=== PATIENT | female | born 2000 | race Hispanic/Latino ===

== ENCOUNTER 2024-10-13 13:26 | Emergency (ER) | payer SELFPAY ==
[~2024-10-13] VITALS: Ht 165.1 cm; Wt 78.0 kg
--- NOTE | 2024-10-13 13:37 | ERN ---
ED Note History of Present Illness Stated Complaint: FALL Chief Complaint: Mechanical Fall Time Seen by MD: 13:28 Dictation: PATIENT IS A 24-YEAR-OLD FEMALE HERE WITH COMPLAINTS OF BILATERAL KNEE PAIN AND RIGHT FOOT PAIN AFTER SLIPPING DOWN THE LAST TWO STEPS COMING DOWN A LADDER. SHE STATES SHE LOST HER FOOTING AND LANDED ON HER BILATERAL KNEES AND HER RIGHT FOOT. SHE IS FULLY AMBULATORY TO THE TRIAGE ROOM. ABRASIONS NOTED TO BILATERAL KNEES. NO HIP PAIN NO NECK PAIN NO HEAD INJURY. NO TRAUMA ALERT CRITERIA. Allergies: Coded Allergies: No Known Allergies (Unverified Allergy, Unknown, 10/13/24) Past Medical History Past Medical History: No Pertinent History Surgical History: None History: Not Applicable RN Note Reviewed/Agreed w/PFSH: Yes Review of System Dictation CONSTITUTIONAL: NEGATIVE EXCEPT FOR HPI HEAD/FACE: NEGATIVE EXCEPT FOR HPI EENT: NEGATIVE EXCEPT FOR HPI RESPIRATORY: NEGATIVE EXCEPT FOR HPI GASTROINTESTINAL/ABDOMINAL: NEGATIVE EXCEPT FOR HPI GENITOURINARY: NEGATIVE EXCEPT FOR HPI MUSCULOSKELETAL: NEGATIVE EXCEPT FOR HPI BILATERAL KNEE/RIGHT FOOT PAIN INTEGUMENTARY: NEGATIVE EXCEPT FOR HPI NEUROLOGICAL/PSYCH: NEGATIVE EXCEPT FOR HPI HEMATOLOGIC/LYMPHATIC: NEGATIVE EXCEPT FOR HPI ALL SYSTEMS NEGATIVE, EXCEPT NOTED ABOVE. 13 POINT REVIEW OF SYSTEMS ASSESSED AND ALL NEGATIVE EXCEPT FOR ABOVE. Initial Vital Sign VS Vital Signs Date Time Temp Pulse Resp B/P (MAP) Pulse Ox O2 Delivery O2 Flow Rate FiO2 10/13/24 13:30 99.1 79 14 175/100 100 Room Air 0 Physical Exam Dictation VITAL SIGNS REVIEWED GENERAL APPEARANCE: ALERT, ORIENTED X 3, MILD ACUTE DISTRESS, WELL DEVELOPED, NOURISHED. HEAD AND FACE: NON-TRAUMATIC. EYES: PERRL, PINK CONJUNCTIVAS, EYELID NO TRAUMA, ANTERIOR CHAMBER WITH ARCUS SENILIS. EARS: PINNAS INTACT AND NO SIGNS OF TRAUMA OR ERYTHEMA EAR CANALS CLEAR AND NO DISCHARGE TM NO ERYTHEMA NOSE: NO DISCHARGE, NO BLEEDING. OROPHARYNX: MOUTH NORMAL, TONGUE PINK, PHARYNX CLEAR,NO ERYTHEMA, TONSILS NO EXUDATES, NO ABSCESSES NOTED, MUCOUS MEMBRANE MOIST NECK: SUPPLE, NON-TENDER, NO THYROMEGALY, NO MASSES, NO JVD, NO BRUITS BREAST:DEFERRED CHEST:NO TENDERNESS, NO CREPITUS, NO PARADOXICAL MOVEMENT, NO RETRACTIONS LUNGS:CLEAR, WELL-VENTILATED, SYMMETRIC, NO RALES, NO WHEEZING, NO RHONCHI, NO STRIDOR, GOOD BREATH SOUNDS BILATERALLY HEART: REGULAR RATE, REGULAR RHYTHM, NO MURMUR, NO GALLOPS VASCULAR: NO PERIPHERAL EDEMA, ABDOMEN: SOFT, POSITIVE BOWEL SOUNDS, NONDISTENDED, NO GUARDING, NONTENDER, NO REBOUND, NO MASSES NO HEPATOMEGALY, NO SPLENOMEGALY, NO WELLS'S SIGN, NO HERNIAS. RECTAL: DEFERRED GENITAL: DEFERRED NEUROLOGICAL: NORMAL SPEECH, MOTOR FUNCTION INTACT, SENSORY FUNCTION INTACT MUSCULOSKELETAL: NECK NONTENDER, BILATERAL KNEE ABRASIONS WITH TENDERNESS. EXTREMITIES: RIGHT DORSAL FOOT TENDERNESS SKIN INTACT, FULL RANGE OF MOTION SKIN: COLOR PINK, DRY, NO TURGOR, NO RASH, NO LACERATIONS, NO ABRASIONS, NO CONTUSIONS. LYMPHATIC: DEFERRED Results (Laboratory/Radiology) Laboratory/Radiology 1410/BILATERAL KNEE X-RAYS/LEFT FOOT X-RAY NEGATIVE Labs Reviewed?: Yes ED Course ED Course Orders Procedure Category Date Status Time Knee 3vws Lt RAD 10/13/24 Taken 13:33 Knee 3vws Rt RAD 10/13/24 Taken 13:33 Foot Comp 3+Vws Rt RAD 10/13/24 Taken 13:33 Apply Ice Pack To: CPOE 10/13/24 Transmitted (Er) 13:33 Acetaminophen 500mg PHA 10/13/24 Complete Tab (Tylenol 500mg T 14:00 Current Medications Medications (Trade) Dose Ordered Sig/Pito Route PRN Reason Start Time Stop Time Status Last Admin Dose Admin Acetaminophen (TYLenol 500MG TAB) 1,000 mg ONCE ONCE PO 10/13/24 14:00 10/13/24 14:01 DC 10/13/24 14:09 Vital Signs Date Time Temp Pulse Resp B/P (MAP) Pulse Ox O2 Delivery O2 Flow Rate FiO2 10/13/24 13:30 99.1 79 14 175/100 100 Room Air 0 1410/PATIENT DISCHARGED HOME WITH BILATERAL KNEE CONTUSIONS AND LEFT FOOT CONTUSION STATUS POST FALL FROM LADDER. DISCHARGED HOME WITH IBUPROFEN GIVEN RICE INSTRUCTIONS AND TOLD SEE HER PRIMARY CARE DOCTOR, ACTIVITY TOLERATED Medical Decision Making MDM MEDICAL DISCHARGE MAKING BASED ON X-RAYS OF BILATERAL KNEES, RIGHT FOOT ALL X-RAYS NEGATIVE PATIENT DISCHARGED HOME WITH DIAGNOSIS OF BILATERAL KNEE CONTUSION, RIGHT FOOT CONTUSION GIVEN IBUPROFEN AND ACTIVITY INSTRUCTIONS. ALSO INFORMATION ON RICE DX & DISP Disposition: Discharge Departure Impression: Primary Impression: Contusion of knee, left Additional Impressions: Contusion of knee, right, Contusion of right foot, initial encounter, Fall from ladder, Abrasion, multiple sites Condition: Stable Scripts Ibuprofen (Ibuprofen 800 mg Tab) 800 Mg Tab 800 MG PO Q8H PRN for fever or pain, #30 TAB 0 Refills TAKE WITH FOOD Prov: ELIZABETH LOPES NP 10/13/24 Additional Instructions: FOLLOW-UP WITH PRIMARY CARE PROVIDER IN 1 TO 2 DAYS. TAKE MEDICATIONS DIRECTED HERE IN THE EMERGENCY ROOM. OKAY TO CONTINUE HOME MEDICATIONS UNLESS OTHERWISE DISCUSSED DURING YOUR VISIT IN THE EMERGENCY ROOM TODAY. RETURN TO YOUR NEAREST EMERGENCY ROOM IF SYMPTOMS WORSEN OR IF THERE IS NO IMPROVEMENT. CALL 911 IF YOU NEED IMMEDIATE ASSISTANCE. TAKE TYLENOL OR MOTRIN [id number] NEEDED AND IF NO CONTRAINDICATIONS ARE PRESENT. INCREASE ORAL HYDRATION. A WOUND CULTURE OR URINE CULTURE WAS ORDERED HERE IN THE EMERGENCY ROOM DEPARTMENT PLEASE FOLLOW-UP WITH PRIMARY CARE PROVIDER AND ADVISE THEM TO GET REPEAT PORTS FROM OUR FACILITY. IF YOU HAD ANY MAEVE WRAP/SPLINTS THAT WERE APPLIED HERE, PLEASE DO NOT REMOVE THEM UNTIL YOU SEE YOUR PRIMARY CARE OR SPECIALTY. COOL COMPRESSES TO PAIN THREE TO 4 TIMES A DAY. APPLY TRIPLE ANTIBIOTIC OINTMENT/[id number] 3 TIMES A DAY FOR FIVE DAYS TO ABRASIONS ON KNEES. ACTIVITY TOLERATED AND SEE YOUR PRIMARY CARE DOCTOR FOR FOLLOW UP. Time of Disposition: 14:13 I have reviewed the case, and I agree with, Diagnosis and Plan ELIZABETH LOPES NP October 13, 2024 13:37
[2024-10-13] MEDS: acetaMINOPHEN 500 MG TABLET PO ONE (14:09)
[2024-10-13] MEDS ORDERED: IBUP-2077 PO (14:14)
[2024-10-13 14:22] VITALS: BP 160/89; PULSE 76; RESP 14; TEMP 98.9; O2SAT 100
--- NOTE | 2024-10-13 14:33 | HMCIMG ---
Exam Type: KNEE 3VWS LT Clinical Information: ANTERIOR KNEE PAIN WITH A ABRASION STATUS POST FALL Comparison: None Findings: The bone examination is unremarkable except for a small osteochondroma arising from the proximal aspect of the medial fibula.. No fractures or dislocations are seen. No radiopaque foreign bodies are noted. Soft tissues are preserved. IMPRESSION: No acute pathology.
--- NOTE | 2024-10-13 14:41 | HMCIMG ---
Exam Type: FOOT COMP 3+VWS RT Clinical Information: RIGHT DORSAL FOOT TENDERNESS PAIN STATUS POST SLIP FALL FLAT Comparison: None Findings: The bone examination is unremarkable. No fractures or dislocations are seen. No radiopaque foreign bodies are noted. Soft tissues are preserved. IMPRESSION: Normal examination.
--- NOTE | 2024-10-13 14:44 | HMCIMG ---
Exam Type: KNEE 3VWS RT Clinical Information: ANTERIOR KNEE PAIN WITH A ABRASION STATUS POST FALL Comparison: None Findings: The bone examination is unremarkable. No fractures or dislocations are seen. No radiopaque foreign bodies are noted. Soft tissues are preserved. IMPRESSION: Normal examination.
== END 2024-10-13 14:33 | disposition home or self-care (01) ==
LOC: EDH 13:26
DX: S80.02XA Contusion of left knee, initial encounter (principal); S80.01XA Contusion of right knee, initial encounter; S90.31XA Contusion of right foot, initial encounter; S80.211A Abrasion, right knee, initial encounter; W11.XXXA Fall on and from ladder, initial encounter; Y93.89 Activity, other specified; Y92.89 Other specified places as the place of occurrence of the external cause; Y99.8 Other external cause status
CPT/HCPCS: 73562; 73630; 99284

== ENCOUNTER 2025-03-21 08:47 | Emergency (ER) | payer SELFPAY ==
[~2025-03-21] VITALS: Ht 165.1 cm; Wt 79.5 kg
[~2025-03-21 08:47] MED LIST: IBUP-2077 PO
--- NOTE | 2025-03-21 09:51 | ERN ---
General Chief Complaint: Tooth Ache/Pain Stated Complaint: TOOTH ACHE Time Seen by MD: 09:08 Source: patient History of Present Illness Initial Comments Patient is a 24-year-old female coming in to be evaluated for left upper molar pain. Per patient she has been seen by a dentist in his currently on antibiotics. States that her pain is still present. Allergies: Coded Allergies: No Known Allergies (Unverified Allergy, Unknown, 10/13/24) Home Meds Active Scripts Ibuprofen (Ibuprofen 800 mg Tab) 800 Mg Tab, 800 MG PO Q8H PRN for fever or pain, #30 TAB 0 Refills TAKE WITH FOOD Prov:ELIZABETH LOPES PREFORMING MACHINE OPERATOR 10/13/24 Past Medical History Past Medical History: Hypertension Past Surgical History: None Female( History) History: Not Applicable LMP: Mar 07, 2025 : 2 Para: 2 Aborts: 0 ROS Dictation CONSTITUTIONAL: No chills, no fever, no weakness, no diaphoresis, no malaise. HEAD/FACE: No signs of trauma. EENT: No eye pain, no blurred vision, no tearing, no double vision, no ear pain, no ear discharge, no nose pain, no nasal congestion, no throat pain, no throat swelling, no mouth pain. RESPIRATORY: No cough, no orthopnea, no SOB, no stridor, no wheezing. CARDIOVASCULAR: No chest pain, no edema, no palpitations, no syncope. GASTROINTESTINAL/ABDOMINAL: No abdominal pain, no constipation, no diarrhea, no nausea, no vomiting. GENITOURINARY: No abnormal discharge, no dysuria, no frequent urination, no hematuria. No complaints of pain in the genitals. MUSCULOSKELETAL: No back pain, no gout, no joint pain, no joint swelling, no muscle pain, no muscle stiffness, no neck pain. INTEGUMENTARY: No change in color, no change in hair/nails, no dryness, no lesion, no lumps, no rash. NEUROLOGICAL/PSYCH: No anxiety, not depressed, no emotional problem, no headache, no numbness, no pre-existing deficit, no history of seizures, no tremors, no weakness. HEMATOLOGIC/LYMPHATIC: Not anemic, no history of blood clots, no apparent bleeding, no bruising, glands not swollen. All Systems Negative, Except as Noted. Physical Exam Physical Exam Dictation VITAL SIGNS: Reviewed. GENERAL APPEARANCE: Alert, oriented x3, no acute distress, obese. HEAD AND FACE: Non-traumatic. EYES: PERRL, pink conjunctivas, eyelid no trauma, anterior chamber clear. EARS: Pinnas intact and no signs of trauma or erythema. Ear canals clear and no discharge. TMs no erythema. NOSE: No discharge, no bleeding. OROPHARYNX: Mouth normal, teeth no caries, tongue pink. Pharynx clear, no erythema. Tooth 13. Inflamed partial fracture NECK: Supple, non-tender, no thyromegaly, no masses, no JVD, no bruits. BREAST: Deferred. CHEST: No tenderness, no crepitus, no paradoxical movement, no retractions. LUNGS: Clear, well-ventilated, symmetric, no rales, no wheezing, no rhonchi, no stridor, good breath sounds bilaterally. HEART: Regular rate, regular rhythm, no murmur, no gallops. VASCULAR: No peripheral edema. ABDOMEN: Soft, positive bowel sounds, nondistended, no guarding, nontender, no rebound, no masses no hepatomegaly, no splenomegaly, no Dean's sign, no hernias. RECTAL: Deferred. GENITAL: Deferred. NEUROLOGICAL: Normal speech, gross motor function intact, gross sensory function intact. MUSCULOSKELETAL: Neck nontender, full range of motion, back nontender, full range of motion. EXTREMITIES: Nontender, full range of motion. SKIN: Color pink, dry, no turgor, no rash, no lacerations, no abrasions, no contusions. LYMPHATICS: Deferred. Results Laboratory and Microbiology Labs Reviewed?: Yes MDM MDM: Differential diagnosis: Periodontal disease, fractured molar, Rationale: Tests considered and ordered secondary to shared decision making include: Previous outside records reviewed: Old ER visits. Risk of complication and/or morbidity or mortality of patient management: None Medications-Per medication reconciliation Need for hospitalization: Patient does not meet criteria for hospitalization. Need for emergency major/minor surgery: No Patient is a 24-year-old female coming in complaining of left upper molar pain. Tooth 13. Was evaluated and presents with a fracture but no erythema around the gum line. Patient is currently taking antibiotics medication for pain relief was provided. Patient will be discharged in stable condition with a diagnosis of fractured molar. ED Course Orders Procedure Category Date Status Time ,Urine Test LAB 03/21/25 Verified 09:46 Ketorolac PHA 03/21/25 Verified Tromethamine 30mg/Ml 10:00 Lidocaine Hcl 2% PHA 03/21/25 Verified Viscous (Lidocaine Hcl 10:00 Vital Signs Date Time Temp Pulse Resp B/P (MAP) Pulse Ox O2 Delivery O2 Flow Rate FiO2 03/21/25 08:51 98.6 66 18 147/104 98 Room Air 0 DX & DISP Disposition: Discharge Departure Impression: Primary Impression: Fracture, tooth Additional Impression: Dental cavities Condition: Stable Additional Instructions: FOLLOW-UP WITH PRIMARY CARE PROVIDER IN 1 TO 2 DAYS. TAKE MEDICATIONS DIRECTED HERE IN THE EMERGENCY ROOM. OKAY TO CONTINUE HOME MEDICATIONS UNLESS OTHERWISE DISCUSSED DURING YOUR VISIT IN THE EMERGENCY ROOM TODAY. RETURN TO YOUR NEAREST EMERGENCY ROOM IF SYMPTOMS WORSEN OR IF THERE IS NO IMPROVEMENT. CALL 911 IF YOU NEED IMMEDIATE ASSISTANCE. TAKE TYLENOL [id number] NEEDED AND IF NO CONTRAINDICATIONS ARE PRESENT. INCREASE ORAL HYDRATION. A WOUND CULTURE OR URINE CULTURE WAS ORDERED HERE IN THE EMERGENCY ROOM DEPARTMENT PLEASE FOLLOW-UP WITH PRIMARY CARE PROVIDER AND ADVISE THEM TO GET REPORTS FROM OUR FACILITY. IF YOU HAD ANY MAEVE WRAP/SPLINTS THAT WERE APPLIED HERE, PLEASE DO NOT REMOVE THEM UNTIL YOU SEE YOUR PRIMARY CARE OR SPECIALTY. Referrals: Referrals: SELF,REFERRAL (PCP) DIAZ LUND MD Time of Disposition: 09:50 DEBBIE SANTAMARIA MD Mar 21, 2025 09:51
[2025-03-21] MEDS: LIDOCAINE HCL 2% VISCOUS 15 ML UDCUP PO ONE (10:07)
[2025-03-21 10:23] VITALS: BP 138/84; PULSE 84; RESP 18; TEMP 97.4; O2SAT 97
== END 2025-03-21 10:21 | disposition home or self-care (01) ==
LOC: EDH 08:47
DX: S02.5XXA Fracture of tooth (traumatic), initial encounter for closed fracture (principal); K02.9 Dental caries, unspecified; I10 Essential (primary) hypertension; Z79.899 Other long term (current) drug therapy; X58.XXXA Exposure to other specified factors, initial encounter; Y93.89 Activity, other specified; Y92.89 Other specified places as the place of occurrence of the external cause; Y99.8 Other external cause status
CPT/HCPCS: 99283; 81025; 96372; J1885

== ENCOUNTER 2025-04-07 16:18 | Emergency (ER) | payer SELFPAY ==
[~2025-04-07] VITALS: Ht 162.6 cm; Wt 78.0 kg
[2025-04-07 16:20] VITALS: TEMP 98.3
--- NOTE | 2025-04-07 16:46 | NUR ---
PT JUST PLACED IN HALLWAY B1
--- NOTE | 2025-04-07 16:54 | ERN ---
General Chief Complaint: Tooth Ache/Pain Stated Complaint: TOOTHACHE, LT FACIAL SWELLING Time Seen by MD: 16:21 Source: patient History of Present Illness Initial Comments IN HIS IS A 24-YEAR-OLD FEMALE COMING IN COMPLAINING OF LEFT FACIAL DISCOMFORT I N HIS SWELLING. PER PATIENT SHE HAS BEEN HAVING ISSUES WITH THE LEFT UPPER MOLAR WHICH HAS BEEN SEEN BY HIS PCP/DENTIST BUT DUE TO THE INFECTION HAS NOT BEEN ABLE TO BE EXTRACTED. PATIENT HAS BEEN DEALING WITH THIS FOR TWO WEEKS AND STATES SHE HAS A FLARE-UPS WHICH IMPROVED AND THIS NEW FLARE-UP STARTED TWO DAYS AGO. Allergies: Coded Allergies: No Known Allergies (Unverified Allergy, Unknown, 10/13/24) Home Meds Active Scripts Ibuprofen (Ibuprofen 800 mg Tab) 800 Mg Tab, 800 MG PO Q8H PRN for fever or pain, #30 TAB 0 Refills TAKE WITH FOOD Prov:ELIZABETH LOPES Ghada MUHAMMAD 10/13/24 Past Medical History Past Medical History: Hypertension Past Surgical History: None Female( History) History: Not Applicable LMP: Mar 31, 2025 : 2 Para: 2 Aborts: 0 ROS Dictation CONSTITUTIONAL: NO CHILLS, NO FEVER, NO WEAKNESS, NO DIAPHORESIS, NO MALAISE. HEAD/FACE: NO SIGNS OF TRAUMA. EENT: NO EYE PAIN, NO BLURRED VISION, NO TEARING, NO DOUBLE VISION, NO EAR PAIN, NO EAR DISCHARGE, NO NOSE PAIN, NO NASAL CONGESTION, NO THROAT PAIN, NO THROAT SWELLING, NO MOUTH PAIN. RESPIRATORY: NO COUGH, NO ORTHOPNEA, NO SOB, NO STRIDOR, NO WHEEZING. CARDIOVASCULAR: NO CHEST PAIN, NO EDEMA, NO PALPITATIONS, NO SYNCOPE. GASTROINTESTINAL/ABDOMINAL: NO ABDOMINAL PAIN, NO CONSTIPATION, NO DIARRHEA, NO NAUSEA, NO VOMITING. GENITOURINARY: NO ABNORMAL DISCHARGE, NO DYSURIA, NO FREQUENT URINATION, NO HE MATURIA. NO COMPLAINTS OF PAIN IN THE GENITALS. MUSCULOSKELETAL: NO BACK PAIN, NO GOUT, NO JOINT PAIN, NO JOINT SWELLING, NO M USCLE PAIN, NO MUSCLE STIFFNESS, NO NECK PAIN. INTEGUMENTARY: NO CHANGE IN COLOR, NO CHANGE IN HAIR/NAILS, NO DRYNESS, NO LESI ON, NO LUMPS, NO RASH. NEUROLOGICAL/PSYCH: NO ANXIETY, NOT DEPRESSED, NO EMOTIONAL PROBLEM, NO HEADACHE, NO NUMBNESS, NO PRE-EXISTING DEFICIT, NO HISTORY OF SEIZURES, NO TREMORS, NO WEAKNESS. HEMATOLOGIC/LYMPHATIC: NOT ANEMIC, NO HISTORY OF BLOOD CLOTS, NO APPARENT BLEEDING, NO BRUISING, GLANDS NOT SWOLLEN. ALL SYSTEMS NEGATIVE, EXCEPT NOTED. Physical Exam Physical Exam Dictation VITAL SIGNS: REVIEWED. GENERAL APPEARANCE: ALERT, ORIENTED X3, NO ACUTE DISTRESS, OBESE. HEAD AND FACE: NON-TRAUMATIC. EYES: PERRL, PINK CONJUNCTIVAS, EYELID NO TRAUMA, ANTERIOR CHAMBER CLEAR. EARS: PINNAS INTACT AND NO SIGNS OF TRAUMA OR ERYTHEMA. EAR CANALS CLEAR AND NO DISCHARGE. TMS NO ERYTHEMA. NOSE: NO DISCHARGE, NO BLEEDING. OROPHARYNX: MOUTH NORMAL, TEETH #28 SWELLING/ERYTHEMA, TONGUE PINK. PHARYNX CLEAR, NO ERYTHEMA. TONSILS NO EXUDATES, NO ABSCESSES NOTED. MUCOUS MEMBRANE MOIST. NECK: SUPPLE, NON-TENDER, NO THYROMEGALY, NO MASSES, NO JVD, NO BRUITS. BREAST: DEFERRED. CHEST: NO TENDERNESS, NO CREPITUS, NO PARADOXICAL MOVEMENT, NO RETRACTIONS. LUNGS: CLEAR, WELL-VENTILATED, SYMMETRIC, NO RALES, NO WHEEZING, NO RHONCHI, NO STRIDOR, GOOD BREATH SOUNDS BILATERALLY. HEART: REGULAR RATE, REGULAR RHYTHM, NO MURMUR, NO GALLOPS. VASCULAR: NO PERIPHERAL EDEMA. ABDOMEN: SOFT, POSITIVE BOWEL SOUNDS, NONDISTENDED, NO GUARDING, NONTENDER, NO REBOUND, NO MASSES NO HEPATOMEGALY, NO SPLENOMEGALY, NO WELLS'S SIGN, NO HERNIAS. RECTAL: DEFERRED. GENITAL: DEFERRED. NEUROLOGICAL: NORMAL SPEECH, GROSS MOTOR FUNCTION INTACT, GROSS SENSORY FUNCTION INTACT. MUSCULOSKELETAL: NECK NONTENDER, FULL RANGE OF MOTION, BACK NONTENDER, FULL RANGE OF MOTION. EXTREMITIES: NONTENDER, FULL RANGE OF MOTION. SKIN: COLOR PINK, DRY, NO TURGOR, NO RASH, NO LACERATIONS, NO ABRASIONS, NO CONTUSIONS. LYMPHATICS: DEFERRED. Results Laboratory and Microbiology Lab and Micro Result Laboratory Tests Test 04/07/25 17:02 White Blood Count 12.4 K/uL (4.8-10.8) H Red Blood Count 5.09 MIL/uL (4.00-5.50) Hemoglobin 14.7 g/dL (12.0-16.0) Hematocrit 43.9 % (36-48) Mean Corpuscular Volume 86.2 fL (79-99) Mean Corpuscular Hemoglobin 28.9 pg (27.0-33.0) Mean Corpuscular Hemoglobin Concent 33.5 g/dL (32.0-36.0) Red Cell Distribution Width 12.3 % (11.0-15.5) Platelet Count 291 K/uL (130-400) Mean Platelet Volume 10.0 fL (7.5-10.5) Immature Granulocyte % (Auto) 0.2 % (0-1) Neutrophils (%) (Auto) 65.8 % (40.0-77.0) Lymphocytes (%) (Auto) 27.7 % (21.0-51.0) Monocytes (%) (Auto) 3.7 % (3.0-13.0) Eosinophils (%) (Auto) 2.3 % (0.0-8.0) Basophils (%) (Auto) 0.3 % (0.0-5.0) Neutrophils # (Auto) 8.2 K/uL (1.8-7.7) H Lymphocytes # (Auto) 3.4 K/uL (1.0-4.8) Monocytes # (Auto) 0.5 K/uL (0.1-1.0) Eosinophils # (Auto) 0.28 K/uL (0.00-0.70) Basophils # (Auto) 0.04 K/uL (0.00-0.20) Absolute Immature Granulocyte (auto 0.03 K/uL (0-1) Nucleated Red Blood Cells 0.0 % (0.0-0.19) Sodium Level 139 mmol/L (136-145) Potassium Level 3.6 mmol/L (3.5-5.1) Chloride Level 104 mmol/L (101-111) Carbon Dioxide Level 26 mmol/L (21-32) Blood Urea Nitrogen 12 mg/dL (7-18) Creatinine 0.6 mg/dL (0.5-1.0) Glomerular Filtration Rate Calc 127 mL/min (>90) Random Glucose 89 mg/dL (70-105) Total Calcium 8.7 mg/dL (8.5-10.1) Serum Test, Qualitative NEGATIVE (NEGATIVE) Labs Reviewed?: Yes MDM MDM: DIFFERENTIAL DIAGNOSIS: PERIODONTAL DISEASE, CELLULITIS, RATIONALE: TESTS CONSIDERED AND ORDERED SECONDARY TO SHARED DECISION MAKING INCLUDE: PREVIOUS OUTSIDE RECORDS REVIEWED: OLD ER VISITS. RISK OF COMPLICATION AND/OR MORBIDITY OR MORTALITY OF PATIENT MANAGEMENT: NONE MEDICATIONS-PER MEDICATION RECONCILIATION NEED FOR HOSPITALIZATION: PATIENT DOES NOT MEET CRITERIA FOR HOSPITALIZATION. NEED FOR EMERGENCY MAJOR/MINOR SURGERY: NO PATIENT IS A 24-YEAR-OLD FEMALE COMING IN COMPLAINING OF LEFT FACIAL SWELLING. PATIENT STATES THAT SHE HAS BEEN COURSING THROUGH THIS INFLAMMATION AND THE INFLAMMATION SUBSIDING FOR ABOUT TWO WEEKS. PATIENT WAS SEEN BY HER DENTIST AND WAS TOLD TO COME HERE FOR ANTIBIOTICS. SHE RECEIVED SOME ANTIBIOTICS AND STEROIDS PATIENT WILL BE DISCHARGED IN STABLE CONDITION ORAL AIRWAY COMPROMISE. IT DID ADVISED HER TO CONTINUE FOLLOW UP WITH THE PCP/DENTIST IN 1-2 DAYS. ED Course Orders Procedure Category Date Status Time Cbc With Differential LAB 04/07/25 Complete 16:47 Basic Metabolic Panel LAB 04/07/25 Complete 16:47 Testing, LAB 04/07/25 Complete Serum Hcg 16:47 Clindamycin Ivpb PHA 04/07/25 In Process 300mg/50ml (Cleocin 17:00 Methylprednisolone PHA 04/07/25 Complete Succ 125mg (Solu-Medr 18:00 Current Medications Medications (Trade) Dose Ordered Sig/Piot Route PRN Reason Start Time Stop Time Status Last Admin Dose Admin Clindamycin HCl/ Dextrose 50 ml @ 100 mls/hr Q8H IV 04/07/25 17:00 04/17/25 16:59 04/07/25 17:06 Methylprednisolone Sodium Succinate (Solu-medROL 125MG) 125 mg ONCE ONCE IVP 04/07/25 18:00 04/07/25 18:01 DC 04/07/25 18:00 Vital Signs Date Time Temp Pulse Resp B/P (MAP) Pulse Ox O2 Delivery O2 Flow Rate FiO2 04/07/25 16:20 98.2 83 16 145/96 99 Room Air 0 DX & DISP Disposition: Discharge Departure Impression: Primary Impression: Periodontal disease Additional Impression: Dental cavities Condition: Stable Scripts Clindamycin HCl (Clindamycin HCl) 300 Mg Capsule 1 CAP PO TID for 10 Days, #30 CAP 0 Refills Prov: DEBBIE SANTAMARIA MD 04/07/25 Additional Instructions: FOLLOW-UP WITH PRIMARY CARE PROVIDER IN 1 TO 2 DAYS. TAKE MEDICATIONS DIRECTED HERE IN THE EMERGENCY ROOM. OKAY TO CONTINUE HOME MEDICATIONS UNLESS OTHERWISE DISCUSSED DURING YOUR VISIT IN THE EMERGENCY ROOM TODAY. RETURN TO YOUR NEAREST EMERGENCY ROOM IF SYMPTOMS WORSEN OR IF THERE IS NO IMPROVEMENT. CALL 911 IF YOU NEED IMMEDIATE ASSISTANCE. TAKE TYLENOL [id number] NEEDED AND IF NO CONTRAINDICATIONS ARE PRESENT. INCREASE ORAL HYDRATION. A WOUND CULTURE OR URINE CULTURE WAS ORDERED HERE IN THE EMERGENCY ROOM DEPARTMENT PLEASE FOLLOW-UP WITH PRIMARY CARE PROVIDER AND ADVISE THEM TO GET REPORTS FROM OUR FACILITY. IF YOU HAD ANY MAEVE WRAP/SPLINTS THAT WERE APPLIED HERE, PLEASE DO NOT REMOVE THEM UNTIL YOU SEE YOUR PRIMARY CARE OR SPECIALTY. REFERRALS: Referrals: MURTAZA ESPOSITO MD (PCP) Time of Disposition: 18:34 DEBBIE SANTAMARIA MD Apr 07, 2025 16:54
--- NOTE | 2025-04-07 17:03 | NUR ---
BLOOD COLLECTED WHEN I INSERTED THE SALINE LOCK
[2025-04-07] MEDS: CLINDAMYCIN IVPB 300MG/50ML 50 ML IV SCH (17:06)
[2025-04-07 17:09] LABS: IMMATURE GRANULOCYTE ABSOLUTE 0.03 K/uL (0-1); NUCLEATED RED BLOOD CELLS 0.0 % (0.0-0.19); PLATELET COUNT (AUTO) 291 K/uL (130-400); RED BLOOD CELL COUNT(AUTO) 5.09 MIL/uL (4.00-5.50); RED CELL DISTRIBUTION WIDTH 12.3 % (11.0-15.5); WHITE BLOOD COUNT (AUTO) 12.4 K/uL (4.8-10.8)
[2025-04-07 17:17] LABS: CREATININE 0.6 mg/dL (0.5-1.0); GLOMERULAR FILTR. RATE CALC 127.0 mL/min (>90); GLUCOSE,RANDOM 89.0 mg/dL (70-105); SODIUM SERUM 139.0 mmol/L (136-145); UREA NITROGEN, BLOOD 12.0 mg/dL (7-18)
--- NOTE | 2025-04-07 17:35 | NUR ---
NO APPARENT S/S OF ANY ALLERGIC REACTION POST MED ADMINISTRATION
[2025-04-07] MEDS ORDERED: CLIN-141 PO (18:34)
[2025-04-07 18:51] VITALS: BP 150/95; PULSE 78; RESP 18; O2SAT 98
== END 2025-04-07 18:58 | disposition home or self-care (01) ==
LOC: EDH 16:18
DX: K05.6 Periodontal disease, unspecified (principal); K02.9 Dental caries, unspecified; I10 Essential (primary) hypertension
CPT/HCPCS: 99284; 96365; 96375; 80048; 84703; 85025; 36415; J2919; J3490